=== PATIENT | male | born 2000 | race Caucasian/White ===

== ENCOUNTER 2024-02-16 15:45 | Emergency (ER) | payer MEDICARE, SELFPAY ==
[2024-02-16 15:49] VITALS: BP 127/68
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
[2024-02-16 17:46] VITALS: BP 133/68
== END 2024-02-16 17:48 | disposition home or self-care (01) ==
LOC: EMR 15:45
PROVIDERS: EMERGENCY PHYSICIAN Emergency Medicine
DX: S01.511D Laceration without foreign body of lip, subsequent encounter (principal); X58.XXXD Exposure to other specified factors, subsequent encounter
CPT/HCPCS: 99283